=== PATIENT | male | born 1985 | race Hispanic/Latino ===

== ENCOUNTER 2017-10-21 20:58 | Emergency (ER) | payer MEDICAID ==
[2017-10-21 21:10] VITALS: BP 123/76; PULSE 71; RESP 18; TEMP 97.9; O2SAT 100
[2017-10-21] MEDS ORDERED: Bacitracin 500 Units/gm Oint Foilpak UD TOP STA (21:13)
[2017-10-21] MEDS ORDERED: Bacitracin 500 Units/gm Oint Foilpak UD ONE (21:26)
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
== END 2017-10-21 22:04 | disposition home or self-care (01) ==
LOC: C.ER 20:58
DX: S40.012A Contusion of left shoulder, initial encounter (principal); S93.401A Sprain of unspecified ligament of right ankle, initial encounter; V49.49XA Driver injured in collision with other motor vehicles in traffic accident, initial encounter; W22.11XA Striking against or struck by driver side automobile airbag, initial encounter; Y92.410 Unspecified street and highway as the place of occurrence of the external cause